=== PATIENT | female | born 1965 | race Caucasian/White ===

== ENCOUNTER 2017-01-11 16:36 | Emergency (ER) | payer SELFPAY ==
[~2017-01-11] VITALS: Ht 152.4 cm; Wt 67.3 kg
[2017-01-11] MEDS ORDERED: ACETAMINOPHEN/CODEINE 300-30 MG TABLET PO ONE (17:30)
[2017-01-11] MEDS ORDERED: ACETAMINOPHEN 325 MG TABLET PO ONE (17:45)
[2017-01-11] MEDS ORDERED: CALCIUM CARBONATE 500 MG CHEWABLE TABLET CHEW ONE (21:15)
[2017-01-11 22:30] VITALS: BP 132/75
== END 2017-01-11 22:50 | disposition home or self-care (01) ==
LOC: EMS 16:38
DX: M25.561 Pain in right knee (principal); I10 Essential (primary) hypertension; F17.210 Nicotine dependence, cigarettes, uncomplicated
CPT/HCPCS: 73700; 99284

== ENCOUNTER 2017-03-18 08:41 | Emergency (ER) | payer MEDICAID ==
[~2017-03-18] VITALS: Ht 152.4 cm; Wt 69.5 kg
[2017-03-18] MEDS ORDERED: GABA-531 PO (08:57)
[2017-03-18] MEDS ORDERED: IBUP-1506 PO (08:57)
[2017-03-18] MEDS ORDERED: NAPR250T4 PO (08:57)
[2017-03-18] MEDS ORDERED: KETOROLAC TROMETHAMINE 60 MG/2 ML VIAL IM ONE (09:00)
[2017-03-18 10:57] VITALS: BP 130/70
== END 2017-03-18 11:00 | disposition home or self-care (01) ==
LOC: EMS 08:44
DX: S83.91XA Sprain of unspecified site of right knee, initial encounter (principal); I10 Essential (primary) hypertension; F17.210 Nicotine dependence, cigarettes, uncomplicated; X58.XXXA Exposure to other specified factors, initial encounter; Y93.89 Activity, other specified; Y92.098 Other place in other non-institutional residence as the place of occurrence of the external cause; Y99.8 Other external cause status
CPT/HCPCS: 29505; 73562; 96372; 99284; 99406; J1885